=== PATIENT | female | born 1975 | race Caucasian/White ===

== ENCOUNTER 2023-02-13 08:55 | Outpatient (CLI) | payer BC, SELFPAY ==
--- NOTE | 2023-02-13 09:15 | CRLHL7_ITS ---
For Patients: As a result of the Century Cures Act, medical imaging exams and procedure reports are released immediately into your electronic medical record. You may view this report before your referring provider. If you have questions, please contact your health care provider. BILATERAL SCREENING MAMMOGRAM WITH COMPUTER-AIDED DETECTION TECHNIQUE: CC and MLO views were obtained. These mammographic images have been obtained using full-field digital technique. These mammographic images were interpreted with the benefit of computer-aided detection. COMPARISON FILM: 10/23/20, 07/17/16, 01/12/15 ([facility]) 01/05/15. FINDINGS: The breasts are heterogeneously dense, which may obscure small masses IMPRESSION: There is no radiographic evidence for malignancy. ASSESSMENT: BI-RADS Category 2: Benign RECOMMENDATION: Routine screening mammogram in 1 year. A lay language report of this examination will be provided to the patient. Jimmy Clay M.D. Diagnostic Radiologist [email or web address] GERALDO/Dictated by: Jimmy Clay MD @ 02/13/2023 12:54:00 PM (Electronically Signed)
== END 2023-02-13 08:56 | disposition home or self-care (01) ==
LOC: MAMMO 08:58
PROVIDERS: Visit Provider Family Medicine
DX: Z12.31 Encounter for screening mammogram for malignant neoplasm of breast (principal); R92.2 Inconclusive mammogram
CPT/HCPCS: 77063; 77067

== ENCOUNTER 2024-11-30 08:07 | Outpatient (CLI) | payer BC, SELFPAY ==
--- NOTE | 2024-11-30 08:15 | CRLHL7_ITS ---
For Patients: As a result of the Cures Act, medical imaging exams and procedure reports are released immediately into your electronic medical record. You may view this report before your referring provider. If you have questions, please contact your health care provider. INDICATION: nontoxic thyroid nodule COMPARISON: 11/13/2020 TECHNIQUE: La scale and color Doppler images were acquired of the thyroid gland. FINDINGS: Solid and cystic nodule inferior pole left thyroid lobe measures 2.8 x 2.4 x 2.6 cm, TR 3. Additional solid and cystic nodule left thyroid lobe measures 3.8 x 3.0 x 2.8 cm, TR 3. A 3rd solid and cystic nodule upper pole left thyroid lobe measures 3.2 x 2.9 x 1.8 cm, TR 3. Previously, the nodules were measured together. The morphology of the left thyroid lobe is similar. Solid and cystic nodule right thyroid lobe measures 7 x 6 x 8 millimeters, TR 3. Additional solid and cystic nodule right thyroid lobe measures 6 x 5 x 3 millimeters, TR 3. The right lobe measures 4.7 x 2.2 x 1.4 cm and the left lobe measures 6.7 x 3.8 x 4.5 cm in size. Isthmus measures 4 millimeters. The color Doppler images demonstrate normal vascularity. There is no evidence of cervical lymphadenopathy or parathyroid mass. IMPRESSION: Multinodular goiter, not significantly changed. Dictated by Jimmy Clay MD @ 11/30/2024 8:53:29 AM (Electronically Signed)
== END 2024-11-30 08:08 | disposition home or self-care (01) ==
LOC: US 08:09
PROVIDERS: Visit Provider Physician Assistant
DX: E04.1 Nontoxic single thyroid nodule (principal)
CPT/HCPCS: 76536

== ENCOUNTER 2024-12-08 09:16 | Outpatient (CLI) | payer BC, SELFPAY | END 2024-12-08 09:17 | disposition home or self-care (01) | PROVIDERS: Visit Provider Surgery | DX: E04.9 Nontoxic goiter, unspecified (principal) | CPT/HCPCS: 84439; 84443; 84481 ==